=== PATIENT | male | born 1940 | race Caucasian/White ===

== ENCOUNTER 2020-12-06 14:26 | Outpatient (CLI) | payer MEDICARE, SELFPAY ==
--- NOTE | ~2020-12-06 | MR_ITS ---
EXAMINATION: MR cervical spine wo con EXAM DATE: 12/06/2020 16:25 INDICATION: G95.9 - Disease of spinal cord, unspecified . TECHNIQUE: Multi-sequential, multiplanar MR images of the cervical spine were obtained without contra st. Axial T2, axial T2 MERGE sequence. Sagittal T1, T2, T2 fat saturation images also obtained. Th ere is no prior study for comparison. FINDINGS: There is moderate disc disease at C5-6 and 6-7, mild to moderate at C3-4. The spinal cord signal intensity and intrinsic morphology is normal. Cervicomedullary junction is normal in appearanc e. There are no suspicious marrow signal abnormalities. The vertebral bodies are aligned in the AP di mension. Paraspinal soft tissue is unremarkable. Level by level evaluation: C2-C3: Disc does not extend beyond the endplate margin. Uncovertebral joint arthropathy: Moderate mild right. Facet joint arthropathy: Moderate bilateral. Neural foraminal stenosis: Mild bilateral. Central canal stenosis: No stenosis. C3-C4: There is a mild diffuse disc bulge. Uncovertebral joint arthropathy: Mild to moderate bilateral. Facet joint arthropathy: Moderate to severe bilateral. Neural foraminal stenosis: Moderate to severe left, moderate right. Central canal stenosis: Mild to moderate . Central canal measures 6-7 mm in mid sagittal AP diameter . C4-C5: There is a mild diffuse disc bulge. Uncovertebral joint arthropathy: Moderate right, mild left. Facet joint arthropathy: Severe right, moderate to severe left. Neural foraminal stenosis: Moderate right, mild to moderate left. Central canal stenosis: Mild. C5-C6: There is a mild diffuse disc bulge. Uncovertebral joint arthropathy: Moderate right, mild to moderate left. Facet joint arthropathy: Moderate bilateral. Neural foraminal stenosis: Moderate right, mild to moderate left. Central canal stenosis: Mild. C6-C7: There is a mild diffuse disc bulge. Uncovertebral joint arthropathy: Moderate bilateral. Facet joint arthropathy: Mild to moderate bilateral. Neural foraminal stenosis: Moderate left, mild to moderate right. Central canal stenosis: Mild. C7-T1: Disc does not extend beyond the endplate margin. Uncovertebral joint arthropathy: None. Facet joint arthropathy: Mild to moderate right, mild left. Neural foraminal stenosis: No stenosis. Central canal stenosis: No stenosis. IMPRESSION: 1. Advanced arthropathy causing some significant multilevel neural foraminal stenosis. 2. Moderate lower cervical disc disease. Reviewed, dictated and finalized at [facility]. IMPRESSION: 1. Advanced arthropathy causing some significant multilevel neural foraminal s tenosis. 2. Moderate lower cervical disc disease.
== END 2020-12-06 14:27 | disposition home or self-care (01) ==
LOC: ANHIMG 14:57
PROVIDERS: PCP Family Medicine; Visit Provider Psychiatry & Neurology Neurology
DX: G95.9 Disease of spinal cord, unspecified (principal); M48.02 Spinal stenosis, cervical region; M50.923 Unspecified cervical disc disorder at C6-C7 level
CPT/HCPCS: 72141

== ENCOUNTER 2024-03-30 06:47 | Outpatient (CLI) | payer MEDICARE, SELFPAY ==
--- NOTE | ~2024-03-30 | MR_ITS ---
MRI of the lumbar spine Clinical History: Radiculopathy Technique: Axial T2-weighted images, and sagittal T1-weighted, T2-weighted, and T2 fat-sat images wer e acquired. Findings: No fracture seen. There is 4 mm retrolisthesis of L2 over L3. No suspicious bone marrow sig nal abnormality seen. At L1-L2, there is moderate degenerative disc narrowing. No significant disc bulge or rotation. There is mild facet arthropathy. No central canal stenosis. There is mild left neural foraminal narrowing. Right neural foramen preserved. At L2-L3, there is severe degenerative disc narrowing and probable partial fusion across the disc spa ce. No significant disc bulge or herniation. There is mild to moderate facet arthropathy. No central canal stenosis. There is moderate bilateral neural foraminal narrowing, right worse than left. At L3-L4, there is mild diffuse disc bulge with moderate facet arthropathy. No central canal stenosis . There is moderate to advanced right neural foraminal narrowing, and moderate left neural foraminal narrowing. At L4-L5, there is mild diffuse disc bulge with severe facet arthropathy. No central canal stenosis. There is severe right neural foraminal narrowing, and minimal left neural foraminal narrowing. At L5-S1, there is severe degenerative disc narrowing without significant disc bulge or herniation. T here is severe facet arthropathy. There is severe bilateral neural foraminal narrowing. Paravertebral soft tissues are unremarkable. Impression: Moderate to advanced degenerative spondylosis, with multilevel neural foraminal narrowing, as detaile d above. 4 mm retrolisthesis of L2 over L3. Reviewed, dictated and finalized at [facility]. D SYSTEM OPERATOR Impression: Moderate to advanced degenerative spondylosis, with multilevel neural foraminal narrowing, as detailed above. 4 mm retrolisthesis of L2 over L3.
== END 2024-03-30 06:48 | disposition home or self-care (01) ==
PROVIDERS: Visit Provider Psychiatry & Neurology Neurology
DX: M47.816 Spondylosis without myelopathy or radiculopathy, lumbar region (principal); M48.061 Spinal stenosis, lumbar region without neurogenic claudication
CPT/HCPCS: 72148